=== PATIENT | female | born 1985 | race Caucasian/White ===

== ENCOUNTER 2016-10-18 21:15 | Emergency (ER) | payer OTHER ==
[2016-10-18 21:31] VITALS: BP 136/99; PULSE 88; TEMP 98.3; BMI 39.8
--- NOTE | 2016-10-18 21:37 | PDOC ---
History of Present Illness <Diane Lowery - Last Filed: 10/18/16 22:14> <Padmaja Felton - Last Filed: 10/19/16 01:43> - General Chief Complaint: Chest Pain Stated Complaint: CHEST PAIN Time Seen by Provider: 10/18/16 21:19 - History of Present Illness Initial Comments: 10/18/16 21:47 The patient is a 31 year old female, with a significant past medical history of sciatica and pre-diabetes, who presents to the emergency department with chest pain and difficulty breathing with associated left arm numbness and tingling since 7PM this evening. 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 She reports her chest pain is exertional and also exacerbated to lying flat. She reports the chest pain has been resolved for the past 1.5 hours. She states the pain is alleviated at rest. She reports at the onset of her chest pain, she developed a "burning tingling" to her left arm, which she reports still has not resolved and hurts bad. She also states she experienced a heaviness and difficulty with breathing, as well as, an acidic burning cramp in her stomach". Secondarily, she states her back teeth started hurting at the onset of her chest pain, however, denies the pain now. The patient states she carries her trays at work with her right arm. She denies any recent travels. She denies the use of oral contraceptives. She denies headache and dizziness. She denies fever, chills, nausea, vomit, diarrhea and constipation. She denies dysuria, frequency, urgency and hematuria. Allergies: NKDA Social history: current smoker (10 cigarettes a day x 1 year) Family History: [place] and Non-Hodgkin's Lymphona (father), Ovarian CA (mother and grandmother), Lung CA (grandmother) Surgical History: (2012), cholecystectomy PCP - Dr. Hernandez (Diane Lowery) Past History <Diane Lowery - Last Filed: 10/18/16 22:14> - Past Medical History HTN: Yes (NO MEDS) - Surgical History Cholecystectomy: Yes (AGE 17) - Immunization History Td Vaccination: Yes Immunization Up to Date: Yes - Psycho/Social/Smoking Cessation Hx Anxiety: No Suicidal Ideation: No Smoking Status: Yes Smoking History: Former smoker Have you smoked in the past 12 months: No Number of Cigarettes Smoked Daily: 0 Information on smoking cessation initiated: No Hx Alcohol Use: No Drug/Substance Use Hx: No Substance Use Type: None <Padmaja Felton - Last Filed: 10/19/16 01:43> - Past Medical History Allergies/Adverse Reactions: Allergies Allergy/AdvReac Type Severity Reaction Status Date / Time No Known Allergies Allergy Verified 10/18/16 21:22 Home Medications: Ambulatory Orders NK [No Known Home Medication] 10/18/16 Review of Systems - Review of Systems Able to Perform ROS?: Yes <Diane Lowery - Last Filed: 10/18/16 22:14> <Padmaja Felton - Last Filed: 10/19/16 01:43> - Review of Systems Comments:: 10/18/16 21:50 CONSTITUTIONAL: (+) generalized weakness with fatigue. Absent: fever, no chills, EYES: Absent: visual changes ENT: Absent: ear pain, no sore throat CARDIOVASCULR: (+) chest pain, Absent: no palpitations RESPIRATORY: (+) SOB. Absent: cough GI: (+) epigastric burning and belching. Absent: no nausea, no vomiting, no constipation, no diarrhea GENITOURINARY: Absent: dysuria, no frequency, no hematuria MUSKULOSKELETAL: (+) upper back pain. left arm pain and tingling. Absent: no arthralgia, SKIN: Absent: rash NEURO: Absent: headache (Diane Lowery) *Physical Exam <Diane Lowery - Last Filed: 10/18/16 22:14> <Padmaja Felton - Last Filed: 10/19/16 01:43> - Vital Signs Last Vital Signs Temp Pulse Resp BP Pulse Ox 98.3 F 88 15 136/99 99 10/18/16 21:16 10/18/16 21:16 10/18/16 21:16 10/18/16 21:16 10/18/16 21:16 - Physical Exam Comments: GENERAL: Adult female, alert and oriented 3, in no acute distress HEAD: Normal with no signs of trauma. EYES: PERRLA, EOMI, sclera anicteric, conjunctiva clear. ENT: Ears normal, nares patent, oropharynx clear without exudates. Moist mucous membranes. NECK: Normal range of motion, supple without lymphadenopathy, JVD, or masses. LUNGS: Breath sounds equal, clear to auscultation bilaterally. No wheezes, and no crackles. HEART:Regular rate and rhythm, normal S1 and S2 without murmur, rub or gallop. ABDOMEN:.normal bowel sounds No guarding,tenderness or rebound.No masses No distention. EXTREMITIES: Normal range of motion, no edema. No clubbing or cyanosis. No erythema, or tenderness. NEUROLOGICAL: Cranial nerves II through XII grossly intact. Normal speech. Normal gait No focal neurologic deficits. MUSCULOSKELETAL: Back non-tender to palpation, no CVA tenderness SKIN: Warm, Dry, normal turgor, no rashes or lesions noted. 12-lead electrocardiogram is performed and interpreted by me: Normal sinus rhythm at 92 bpm; axis, intervals and wave forms are all normal. No acute ST or T-wave abnormalities evident. (Padmaja Felton) Heart Score/ECG Review - History History: Slightly suspicious - Electrocardiogram EKG: Normal - Age Age: </= 45 - Risk Factors Risk Factors Heart Score: Yes Smoking History, Yes Positive family hx of cardiac disease Based on the list above the patient has:: 1-2 risk factors - Troponin Troponin: </= normal limit - Score Heart Score - Total: 1 <Padmaja Felton - Last Filed: 10/19/16 01:43> ED Treatment Course - LABORATORY CBC & Chemistry Diagram: 10/18/16 21:45 10/18/16 21:45 <Diane Lowery - Last Filed: 10/18/16 22:14> - LABORATORY CBC & Chemistry Diagram: 10/18/16 21:45 10/18/16 21:45 <Padmaja Felton - Last Filed: 10/19/16 01:43> - ADDITIONAL ORDERS Additional order review: Laboratory Results 10/18/16 10/18/16 10/18/16 22:11 22:11 21:45 Sodium Potassium Chloride Carbon Dioxide Anion Gap BUN Creatinine Creat Clearance w eGFR Random Glucose Calcium Total Bilirubin AST ALT Alkaline Phosphatase Creatine Kinase 124 Troponin I < 0.03 L Total Protein Albumin Lipase 33 Urine Color Yellow Urine Appearance Clear Urine pH 7.0 Ur Specific [place] 1.020 Urine Protein Negative Urine Glucose (UA) Negative Urine Ketones Negative Urine Blood Negative Urine Nitrite Negative Urine Bilirubin Negative Urine Urobilinogen 0.2 Ur Leukocyte Esterase Trace Urine HCG, Qual Negative 10/18/16 21:45 Sodium 135 L Potassium 3.7 Chloride 106 Carbon Dioxide 26 Anion Gap 3 L BUN 15 Creatinine 0.6 Creat Clearance w eGFR > 60 Random Glucose 96 D Calcium 8.8 Total Bilirubin 0.4 D AST 24 ALT 38 Alkaline Phosphatase 69 Creatine Kinase Troponin I Total Protein 7.1 Albumin 4.0 Lipase Urine Color Urine Appearance Urine pH Ur Specific [place] Urine Protein Urine Glucose (UA) Urine Ketones Urine Blood Urine Nitrite Urine Bilirubin Urine Urobilinogen Ur Leukocyte Esterase Urine HCG, Qual 10/18/16 21:45 RBC 4.73 MCV 80.8 MCHC 34.4 RDW 12.3 MPV 8.3 Neutrophils % 54.8 Lymphocytes % 33.6 Monocytes % 6.3 Eosinophils % 4.2 Basophils % 1.1 - Medications Given in the ED: ED Medications Discontinued Medications Generic Name Dose Route Start Last Admin Trade Name Elina PRN Reason Stop Dose Admin Pantoprazole Sodium 40 mg/ 100 mls @ 200 mls/hr 10/18/16 22:29 10/18/16 22:39 Sodium Chloride IVPB 10/18/16 22:58 200 mls/hr ONCE ONE Administration Ketorolac Tromethamine 30 mg 10/18/16 22:54 10/18/16 22:59 Toradol Injection - IVPUSH 10/18/16 22:55 30 mg ONCE ONE Administration Progress Note <Diane Lowery - Last Filed: 10/18/16 22:14> <Padmaja Felton - Last Filed: 10/19/16 01:43> - Progress Note Progress Note: Documentation has been prepared under my direction and personally reviewed by me in its entirety. I attest that this documented accurately reflects all work, treatment, procedures and medical decision making performed by me. (Padmaja Felton) Medical Decision Making <Diane Lowery - Last Filed: 10/18/16 22:14> <Padmaja Felton - Last Filed: 10/19/16 01:43> - Medical Decision Making As noted above, this 31-year-old woman with a history of right-sided sciatica, GERD, prediabetes presents with history of intermittent substernal and mid posterior back pain (now resolved) and numbness/pain of her left forearm. Her chest and mid to upper back pain occurred with movement and resolved with rest earlier today. She took no medications prior to its resolution. Onset was approximately 2 hours after dinner (i.e. beginning at 7 PM) and lasting 1 hour. Individual episodes lasted minutes prior to resolution. She was mildly nauseated but had no other associated symptoms. She currently has no chest pain pain and had none on her way to the emergency room. Her left forearm discomfort/numbness has persisted. 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 Exam as noted. There are no neurologic deficits or reproducible sensory changes on neuro exam. EKG, as noted was normal. CBC/chemistry profile/cardiac enzymes were sent Patient has cardiac risk factors of smoking and family history. Laboratory evaluation, including cardiac enzymes were essentially normal. Besides her long-standing sciatica, patient had severe carpal tunnel syndrome during . She appears to have susceptibility to neuropathic pain . Etiology of this is unclear. She has never had a neurologic workup. Patient given Protonix 40 mg IV for possible gastrointestinal etiology of her substernal/posterior chest pain. Also, Toradol 30 mg IV given. Patient will be discharged with instructions to return to the emergency room if her symptoms worsen or she has recurrent chest pain. Meanwhile, she should not work for the next few days, avoiding strenuous activity. She should follow-up with her general doctor, Dr. Rodriguez's shoe. She will also be given referral information for Dr. Mar who is currently on-call for neurology. (Padmaja Felton) *DC/Admit/Observation/Transfer <Diane Lowery - Last Filed: 10/18/16 22:14> <Padmaja Felton - Last Filed: 10/19/16 01:43> Diagnosis at time of Disposition: Atypical chest pain, Neuropathic pain of left forearm - Discharge Dispostion Disposition: HOME Condition at time of disposition: Stable - Referrals Referrals: Barber Hernandez MD [Primary Care Provider] - Simon Dale MD [Staff Physician] - 1 week - Patient Instructions Printed Discharge Instructions: DI for Atypical Chest Pain Additional Instructions: Rest Avoid strenuous activity involving upper body No work for the next 2 days Call neurologist (Dr. Mar) on Saturday 10/21 to arrange followup within 5 days Follow-up with Dr. Hernandez within 3-4 days Return to ER if you have recurrent chest pain or worsening arm/leg symptoms - Post Discharge Activity Work/School Note: Back to Work - Attestations Scribe Attestion: 10/18/16 21:52 Documentation prepared by Diane Lowery, acting as medical device assembler for Padmaja Felton MD (Diane Lowery)
[2016-10-18 22:00] LABS: BASOPHIL 1.1 % (0-2.0); EOSINOPHIL 4.2 % (0-4.5); MCH 27.8 pg (25.7-33.7); MCHC 34.4 g/dl (32.0-36.0); MEAN CELL VOLUME 80.8 fl (80-96); MEAN PLT VOLUME 8.3 fl (7.5-11.1); NEUTROPHILS 54.8 % (42.8-82.8); PLATELET COUNT 313 K/MM3 (134-434); RDW 12.3 % (11.6-15.6); WHITE BLOOD COUNT 10.3 K/mm3 (4.0-10.8)
[2016-10-18 22:09] LABS: ALK PHOS 69 U/L (32-92); ANION GAP 3 (8-16); BILIRUBIN,TOTAL 0.4 mg/dl (0.2-1.0); CALCIUM 8.8 mg/dl (8.4-10.2); CO2 26 mmol/L (22-28); CPK(DFH) 124 IU/L (26-140); CREATININE 0.6 mg/dl (0.6-1.3); GLUCOSE,RANDOM 96 mg/dl (74-106); SGOT/AST 24 U/L (10-42); SGPT/ALT 38 U/L (10-40); TOT PROT 7.1 g/dl (6.4-8.3)
[2016-10-18 22:14] LABS: URINE APPEARANCE Clear; URINE BILIRUBIN Negative (NEGATIVE); URINE BLOOD Negative (NEGATIVE); URINE COLOR YELLOW; URINE GLUCOSE (UA) Negative (NEGATIVE); URINE KETONE Negative (NEGATIVE); URINE LEUK ESTERASE Trace (NEGATIVE); URINE NITRITE Negative (NEGATIVE); URINE PROTEIN Negative (NEGATIVE); URINE UROBILINOGEN 0.2 (0.2-1.0)
[2016-10-18 22:18] LABS: TROPONIN I (DFP) < 0.03 ng/ml (0.03-0.50)
[2016-10-18] MEDS ORDERED: PANTOPRAZOLE SODIUM 40 MG in SODIUM CHLORIDE 100 ML IVPB ONE (22:29)
[2016-10-18] MEDS ORDERED: PANTOPRAZOLE SODIUM 40 MG VIAL ONE (22:30)
[2016-10-18] MEDS ORDERED: KETOROLAC TROMETHAMINE 30 MG/1 ML VIAL IVPUSH ONE (22:54)
[2016-10-18] MEDS ORDERED: KETOROLAC TROMETHAMINE 30 MG/1 ML VIAL ONE (22:56)
--- NOTE | 2016-10-22 09:25 | EKG ---
Test Reason : Blood Pressure : / mmHG Vent. Rate : 092 BPM Atrial Rate : 092 BPM P-R Int : 174 ms QRS Dur : 086 ms QT Int : 370 ms P-R-T Axes : 049 008 011 degrees QTc Int : 457 ms NORMAL SINUS RHYTHM MINIMAL VOLTAGE CRITERIA FOR LVH, MAY BE NORMAL VARIANT NO PREVIOUS ECGS AVAILABLE Confirmed by MD OROZCO MARJORY ([id number]) on 10/22/2016 9:25:09 AM Referred By: MD RICHARDSON Confirmed By:MYRA OROZCO MD
== END 2016-10-18 23:33 | disposition home or self-care (01) ==
LOC: FER 21:15
PROC: 3E0233Z Introduction of Anti-inflammatory into Muscle, Percutaneous Approach (ICD-10-PCS; principal; 2016-10-18)
PROC: 3E033GC Introduction of Other Therapeutic Substance into Peripheral Vein, Percutaneous Approach (ICD-10-PCS; 2016-10-18)
DX: R07.89 Other chest pain (principal); G56.92 Unspecified mononeuropathy of left upper limb; K21.9 Gastro-esophageal reflux disease without esophagitis; M54.31 Sciatica, right side
CPT/HCPCS: 36415; 80053; 81003; 82550; 83690; 84484; 84703; 85025; 93005; 96365; 96375; 99284-25

== ENCOUNTER 2023-01-31 19:25 | Emergency (ER) | payer OTHER ==
[2023-01-31 19:45] VITALS: BP 139/100; PULSE 85; RESP 16; TEMP 98.9; BMI 38.6
== END 2023-01-31 21:20 | disposition home or self-care (01) ==
LOC: FER 19:25
DX: M54.2 Cervicalgia (principal); M54.50 Low back pain, unspecified; S13.4XXA Sprain of ligaments of cervical spine, initial encounter; S39.012A Strain of muscle, fascia and tendon of lower back, initial encounter; V49.40XA Driver injured in collision with unspecified motor vehicles in traffic accident, initial encounter; Y93.I9 Activity, other involving external motion
CPT/HCPCS: 99283-25